=== PATIENT | male | born 1990 | race Caucasian/White ===

== ENCOUNTER 2024-07-23 03:07 | Emergency (ER) | payer BC, SELFPAY ==
[2024-07-23 03:10] VITALS: BP 132/77; PULSE 115; RESP 17; TEMP 36.9; O2SAT 98
[2024-07-23] MEDS: ONDANSETRON INJ 4 MG/2 ML VIAL IV PUSH (03:53)
[2024-07-23] MEDS: SODIUM CHLORIDE 0.9% IV 1,000 ML 999 ML IV CONT (03:53)
[2024-07-23 04:01] LABS: Basophils Percent Auto 0.6 % (0.2-1.2); Eosinophils Absolute Auto 0.2 K/mm3 (0-0.3); Eosinophils Percent Auto 4.3 % (0-4.4); Hematocrit 43.9 % (42.0-52.0); Hemoglobin 15.7 g/dL (14.0-18.0); Immature Granulocyte Absolute 0.03 K/mm3 (0.00-0.031); Immature Granulocyte Percent A 0.6 % (0-0.5); Immature Platelet Fraction Pct 6.6 % (0.9-11.2); Lymphocytes Absolute Auto 0.84 K/mm3 (0.9-3.2); Lymphocytes Percent Auto 15.6 % (18.3-44.2); Mean Corpuscular HGB Conc 35.8 g/dl (32-36); Mean Corpuscular Hemoglobin 32.3 pg (26-34); Mean Corpuscular Volume 90.3 fl (80-100); Mean Platelet Volume 10.9 fl (7.4-10.4); Monocytes Absolute Auto 0.5 K/mm3 (0.1-0.6); Monocytes Percent Auto 8.3 % (2.6-8.5); Neutrophils Absolute Auto 3.8 K/mm3 (1.3-6.7); Neutrophils Percent Auto 70.6 % (45.5-73.1); Platelet Count Result 137 k/mm3 (150-375); Red Blood Count 4.86 M/mm3 (4.6-6.20); Red Cell Distribution Width 12.3 % (11.5-14.5); White Blood Count 5.4 K/mm3 (4.5-10.0)
--- NOTE | 2024-07-23 04:03 | ED.GENADULT ---
HPI - General Adult General Chief complaint: Nausea/Vomiting/Diarrhea Stated complaint: n/v/d, fever, body aches Time Seen by Provider: 07/23/24 03:14 History of Present Illness HPI narrative: Patient is a 34-year-old male who presents to the emergency department this morning complaining of nausea, vomiting and diarrhea since July 20. Patient is also complaining of body aches and feeling feverish/chills. 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 States that he is unable to keep down any food or drink. Has not taken any medications prior to arrival. No chest pain or abdominal pain. No additional symptoms or concerns at this time. Related Data Allergies Allergy/AdvReac Type Severity Reaction Status Date / Time ibuprofen AdvReac Mild Itching Verified 07/23/24 03:10 Review of Systems Review of Systems: All systems are reviewed and are negative unless stated otherwise in the HPI. Exam Narrative: General: Alert, awake, afebrile, in no acute distress. HEENT: PERRL, no rhinorrhea, no post nasal drip, oropharynx clear. Neck: Trachea midline, no JVD, no lymphadenopathy. Cardiovascular: Regular rate and rhythm, no murmurs, rubs or gallops, no peripheral edema. Respiratory: Clear to auscultation bilaterally, no tachypnea, no wheezing, no rhonchi, no rubs, no respiratory distress. Abdomen: Soft, nontender, nondistended, no rebound, no guarding, no peritoneal signs. Musculoskeletal: No joint swelling or deformity, normal muscle tone. Skin: No rashes or petechia, no signs of infection. Psychiatric: Alert and oriented, normal behavior and judgment for situation. Neurological: Alert and oriented to person, place, and time. Follows all commands. No focal deficits, speech is clear and fluent. Course Vital Signs Vital signs: Vital Signs Temperature 98.5 F 07/23/24 03:10 Pulse Rate 115 H 07/23/24 03:10 Respiratory Rate 17 07/23/24 03:10 Blood Pressure 132/77 07/23/24 03:10 Pulse Oximetry 98 07/23/24 03:10 Oxygen Delivery Room Air 07/23/24 03:10 Temperature 99.1 F 07/23/24 04:33 Pulse Rate 102 H 07/23/24 04:33 Respiratory Rate 17 07/23/24 04:33 Blood Pressure 143/85 H 07/23/24 04:33 Pulse Oximetry 99 07/23/24 04:33 Oxygen Delivery Room Air 07/23/24 03:10 Medical Decision Making MDM Narrative Medical decision making narrative: The patient was evaluated by myself in the emergency department. History is obtained from patient who is an independent historian and physical exam was performed. External medical records were reviewed at this time. IV was established and pertinent tests were ordered. Patient was administered 4 mg of IV Zofran and 1 L IV fluid bolus with normal saline. Patient was also administered 50 mg of IV Toradol for body aches. Laboratory results obtained revealing a potassium of 3.2, otherwise unremarkable. Patient was administered 40 mEq of oral potassium at this time. Magnesium level noted to be within normal limits at 1.8. Viral swabs were negative for COVID/influenza/RSV. Differential diagnosis considerations include gastroenteritis, acute viral syndrome, dehydration, electrolyte derangements. Comorbidities impacting this visit include none. I have evaluated and discussed social determinants of health with the patient that could potentially impact subsequent diagnosis and treatment plans. On repeat assessment of the patient, reevaluation revealed that the patient is doing well and is in no acute distress. Patient symptoms have improved since he arrived to our emergency department. Repeat vital signs were all reviewed and noted to be stable. Differential diagnosis and treatment plan were discussed with the patient at bedside. Patient agrees with discussion and after shared medical decision making agrees with discharge. All questions were answered to the patient's satisfaction. Patient will follow up with his PCP in 3-5 days. Script for Zofran was sent to patient's pharmacy to use as needed for nausea/vomiting. Patient was provided with strict return precautions and instructed to return to the emergency department if any new or worsening symptoms develop. The patient was discharged in stable condition. Vital Signs Vital Signs: Vital Signs Temperature 98.5 F 07/23/24 03:10 Pulse Rate 115 H 07/23/24 03:10 Respiratory Rate 07/23/24 03:10 Blood Pressure 132/77 07/23/24 03:10 Pulse Oximetry 98 07/23/24 03:10 Oxygen Delivery Room Air 07/23/24 03:10 Temperature 99.1 F 07/23/24 04:33 Pulse Rate 102 H 07/23/24 04:33 Respiratory Rate 17 07/23/24 04:33 Blood Pressure 143/85 H 07/23/24 04:33 Pulse Oximetry 99 07/23/24 04:33 Oxygen Delivery Room Air 07/23/24 03:10 Lab Data 07/23/24 03:54 07/23/24 04:34 Labs: Lab Results 07/23/24 07/23/24 07/23/24 Range/Units 03:20 03:54 04:34 WBC 5.4 (4.5-10.0) K/mm3 RBC 4.86 (4.6-6.20) M/mm3 Hgb 15.7 (14.0-18.0) g/dL Hct 43.9 (42.0-52.0) % MCV 90.3 (80-100) fl MCH 32.3 (26-34) pg MCHC 35.8 (32-36) g/dl RDW 12.3 (11.5-14.5) % Plt Count 137 L (150-375) k/mm3 MPV 10.9 H (7.4-10.4) fl Immature Gran % (Auto) 0.6 H (0-0.5) % Neut % (Auto) 70.6 (45.5-73.1) % Lymph % (Auto) 15.6 L (18.3-44.2) % [place] % (Auto) 8.3 (2.6-8.5) % Eos % (Auto) 4.3 (0-4.4) % Baso % (Auto) 0.6 (0.2-1.2) % Lymph # (Auto) 0.84 L (0.9-3.2) K/mm3 [place] # (Auto) 0.5 (0.1-0.6) K/mm3 Eos # (Auto) 0.2 (0-0.3) K/mm3 Baso # (Auto) 0.0 (0.0-0.1) K/mm3 Abs Immat Gran (auto) 0.03 (0.00-0.031) K/mm3 Absolute Neuts (auto) 3.8 (1.3-6.7) K/mm3 Absolute Nucleated RBC 0.000 (0.0-0.012) K/mm3 Nucleated RBC % 0.0 (0.0-0.2) % % Immature Plt Fraction 6.6 (0.9-11.2) % Sodium 137 (137-145) mmol/L Potassium 3.2 L (3.4-5.0) mmol/L Chloride 102 (98-107) mmol/L Carbon Dioxide 23 (22-30) mmol/L Anion Gap 12 (4-12) mmol/L BUN 9 (9-20) mg/dL Creatinine 0.67 L (0.7-1.3) mg/dL Estim Creat Clear Calc 186 ml/min Estimated GFR > 60 (59 - ) Glucose 108 (65-110) mg/dL Calcium 7.7 L (8.4-10.2) mg/dL Magnesium 1.8 (1.6-2.3) mg/dL Total Bilirubin 0.7 (0.2-1.3) mg/dL AST 39 (17-59) U/L ALT 35 (6-50) U/L Alkaline Phosphatase 81 (38-126) U/L Total Protein 7.0 (6.3-8.2) g/dL Albumin 3.8 (3.5-5.1) g/dL Lipase 61 (23-300) U/L Influenza A (RT-PCR) Negative (Negative) Influenza B (RT-PCR) Negative (Negative) RSV (RT-PCR) Negative (Negative) SARS-CoV-2 RNA (RT-PCR) Negative (Negative) Discharge Plan Discharge Clinical Impression: Gastroenteritis, Acute hypokalemia Patient Disposition: Home, Self-Care Condition: Improved Instructions: Antibiotic Form, Hypokalemia (ED), Gastroenteritis (ED) Additional Instructions: Please follow-up with your family doctor within the next 3-5 days. Return to the emergency department if any worsening symptoms develop. Use the prescribed nausea medicine as needed for nausea/vomiting. 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
[2024-07-23 04:24] LABS: Influenza A QL RT-PCR Negative (Negative); Influenza B QL RT-PCR Negative (Negative); RSV RNA, RT-PCR Negative (Negative); SARS-CoV-2 RNA PCR Negative (Negative)
[2024-07-23 04:33] VITALS: BP 143/85; PULSE 102; RESP 17; TEMP 37.3; O2SAT 99
[2024-07-23] MEDS: KETOROLAC 15 MG/ML VIAL (*BKC) IV PUSH (04:43)
[2024-07-23 05:05] LABS: Alanine Aminotransferase 35 U/L (6-50); Albumin Level 3.8 g/dL (3.5-5.1); Alkaline Phosphatase 81 U/L (38-126); Anion Gap 12 mmol/L (4-12); Aspartate Amino Transferase 39 U/L (17-59); Bilirubin,Total 0.7 mg/dL (0.2-1.3); Blood Urea Nitrogen 9 mg/dL (9-20); Calcium 7.7 mg/dL (8.4-10.2); Carbon Dioxide 23 mmol/L (22-30); Chloride 102 mmol/L (98-107); Estimated CRCL calculation 186 ml/min; Estimated Glomerular Filt Rate > 60; Glucose 108 mg/dL (65-110); Lipase 61 U/L (23-300); Magnesium 1.8 mg/dL (1.6-2.3); Potassium 3.2 mmol/L (3.4-5.0); Sodium 137 mmol/L (137-145)
[2024-07-23] MEDS: POTASSIUM CHLORIDE 20 MEQ ER TABLET 40 MEQ PO (05:17)
--- OUTSIDE RECORDS SUMMARY | 2024-07-26 11:20 | XMS_ITS | Clinical Summary ---
Author Organization [facility] Address [address] [place] [address]. [place], [place] [id number] [place] [id number] Care Team Providers Care Assistant Professor Of Life Sciences Name Role Phone None, Provider MD Primary Care Provider Unavaila ble Allergies No known active allergies Medications gabapentin (NEURONTIN) 300 MG capsule Take 1 capsule (300 mg total) by mouth 3 (three) times daily. 90 capsule 04/21/2023 Active meloxicam (MOBIC) 15 MG tablet Take 1 tablet (15 mg total) by mouth daily. 14 tablet 04/21/2023 Active Social History Tobacco Use Types Packs/Day Years Used Date Smoking Tobacco: Never Assessed Alcohol Use Standard Drinks/Week Comments Not Currently 0 (1 standard drink = 0.6 oz pur e alcohol) Sex and Gender Information Value Date Recorded Sex Assigned at Not on file Legal Sex Male 4:38 PM CDT Gender Identity Not on file Sexual Orientation Not on file Last Filed Vital Signs Vital Sign Reading Time Taken Comments Blood Pressure 133/72 04/20/2023 10:45 PM CDT Pulse 89 04/20/2023 10:45 PM CDT Temperature 36.7 ??C (98.1 ??F) 04/20/2023 8:47 PM CD T Respiratory Rate 18 04/20/2023 10:45 PM CDT Oxygen Saturation 99% 04/20/2023 10:45 PM CDT Inhaled Oxygen Concentration - - Weight 113.4 kg (250 lb) 04/20/2023 8:47 PM CDT Height 188 cm (6' 2 ) 04/20/2023 8:47 PM CDT Body Mass Index 32.1 04/20/2023 8:47 PM CDT Plan of Treatment Health Maintenance Due Date Last Done Comments Annual Physical 1994 Hepatitis C 2009 DTaP, Tdap and Td Vaccines ( 1 - Tdap) 2010 Hepatitis B Vaccines (1 of 3 - 19+ 3-dose series) 2010 COVID-19 Vaccine ( - 2023-2 5 season) 2024 Influenza Adult (#1) 2024 HPV Vaccines Aged Out No longer eligi ble based on patient's age to complete this topic Meningococcal Vaccine Aged Out No danish tyrese eligible based on patient's age to complete this topic Pneumococcal Vaccine: Pediat rics (0 to 5 Years) and At-Risk Patients (6 to 64 Years) Aged Out No longer eligible b ased on patient's age to complete this topic RSV Immunizations Under 20 Months Aged Out No longer eligible based on patient's age to complete this topic Insurance Care Teams Assistant Professor Of Life Sciences Relationship Specialty Start Date End Date None, Provider, PCP - General UNKNOWN PHYSICIAN SPECIALTY 04/20/23
== END 2024-07-23 05:34 | disposition home or self-care (01) ==
PROVIDERS: Emergency Provider Emergency Medicine
DX: K52.9 Noninfective gastroenteritis and colitis, unspecified (principal); E87.6 Hypokalemia; Z20.822 Contact with and (suspected) exposure to COVID-19
CPT/HCPCS: 36415; 80053; 83690; 83735; 85025; 85055; 87637; 96361; 96374; 96375; 99284; A9270; J1885; J2405; J7030